=== PATIENT | female | born 1965 | race Caucasian/White ===

== ENCOUNTER 2020-03-26 10:11 | Emergency (ER) | payer OTHER ==
[~2020-03-26] VITALS: Ht 160 cm; Wt 92.5 kg
[2020-03-26 10:25] VITALS: BP 128/95
[2020-03-26 10:42] VITALS: BP 128/95
--- NOTE | 2020-03-26 10:56 | DIREP ---
PROCEDURE:XRAY WRIST MIN 3VW-LT COMPARISON:None. INDICATIONS:fall, wrist pain FINDINGS: BONES:Impacted fracture of the distal radial metaphysis with mild dorsal angulation. There is questionable extension to the distal articular surface. JOINTS:Normal. SOFT TISSUES:Normal. OTHER:No additional findings. CONCLUSION:Impacted fracture of the distal radial metaphysis with questionable extension to the distal articular surface. Dictated by: Nilton Huerta M.D. on 03/26/2020 at 11:06 AM
[2020-03-26] MEDS ORDERED: TORADOL ONE (11:08)
[2020-03-26] MEDS: TORADOL IM STA (11:18)
--- NOTE | 2020-03-26 11:21 | ER.PDOC ---
General Chief Complaint: Extremities Stated Complaint: FALL/HURT LEFT WRIST Time seen by MD: 10:50 Source: patient Exam Limitations: no limitations History of Present Illness Initial Comments Pt states she was at her sister's this morning and tripped fell landing on her left hand and left knee. Pt states now her left shoulder hurts and left wrist and left knee are very painful Occurred: just prior to arrival Where: home Severity: moderate Modifying Factors: pain on movement Allergies: Coded Allergies: acetaminophen (Verified Allergy, Unknown, NAUSEA, 03/26/20) codeine (Verified Allergy, Unknown, NAUSEA, 03/26/20) Past Medical History Medical History: GERD, high cholesterol, hypertension Surgical History: hysterectomy, shoulder, tonsillectomy, other Family History Significant Family History: other Social History Alcohol Use: none Drug Use: none Review of Systems Constitutional: no symptoms reported EENTM: no symptoms reported Respiratory: no symptoms reported Cardiovascular: no symptoms reported Gastrointestinal: no symptoms reported Genitourinary: no symptoms reported Musculoskeletal: see HPI Skin: no symptoms reported Psychiatric/Neurological: no symptoms reported All Other Systems: Reviewed and Negative Physical Exam General Appearance: Alert, Anxious, Mild Distress Hand: nml inspection, non-tender Wrist: tenderness, tenderness snuff box, swelling, limited ROM due to pain Forearm/Elbow: nml inspection, non-tender, nml ROM Arm/Shoulder: limited ROM by pain Neuro/Vasc/Tendon: sensation nml, motor nml, no vascular compromise, tendon function nml Skin: warm/dry Head/ENT: nml inspection, pharynx nml Neck/Back: nml inspection, non-tender Respiratory: chest non-tender, breath sounds nml CVS: heart sounds normal Abdomen: non-tender, no organomegaly Comments + deformity lateral wrist area radial side, skin intact, radial pulse +3 , left knee and left shoulder full painful ROM Splinting Splinting : Location: left arm Pre-Made Type: Hand-Made Type: orthoglass Splint: sugar-tong Pre-Proc Neuro Vasc Exam: normal Post-Proc Neuro Vasc Exam: normal Progress PT tolerated it well Results/Orders Results/Orders Orders - CRISS ANGLIN NP Ketorolac Tromethamine (Toradol) (03/26/20 11:07) Xr Shoulder Lt 2v (03/26/20 11:07) Xr Knee Lt 2v (03/26/20 11:07) Vital Signs Date Time Temp Pulse Resp B/P (MAP) Pulse Ox O2 Delivery O2 Flow Rate FiO2 03/26/20 10:42 97.9 102 16 128/95 (106) 96 03/26/20 10:42 97.9 102 16 128/95 (106) 96 03/26/20 10:25 97.9 102 16 03/26/20 10:25 97.9 102 16 96 Administered Medications Medications (Trade) Dose Ordered Sig/Shaista Route PRN Reason Start Time Stop Time Status Last Admin Dose Admin Ketorolac Tromethamine (Toradol) 60 mg OT STAT IM 03/26/20 11:07 03/26/20 11:09 DC 03/26/20 11:18 60 MG Progress Progress ICE to the left wrist and left knee. I discussed signs and symptoms and fracture and treatment and discharge with Dr Bonilla. MT. Left shoulder immobilizer place on the pt, she tolerated it well MT Departure Time of Disposition: 12:15 Disposition: 01 HOME, SELF-CARE Impression: Primary Impression: Wrist fracture, left Additional Impressions: Distal radius fracture, left Contusion of knee, left Shoulder pain, left Condition: Stable Patient Instructions: Knee Pain, [id number], RICE - Routine Care for Injuries, [id number], Shoulder Pain, [id number], Wrist Fracture, [id number] Referrals: PCP,UNKNOWN (PCP) PRIMARY CARE PROVIDER Additional Instructions: Return if symptoms worsen. Follow up with [facility]opedic at home in [place], [place] tomorrow or Dr. Wu in [place], [place] [phone] for follow up. Tramadol 50 mg one by mouth every 8 hours as needed for pain x 5 days 15 # Duration or Time Spent with Pa: 18 minutes Return to Work/School Can a patient return to work?: No Can a patient return to school: No Problem Qualifiers Primary Impression: Wrist fracture, left Encounter type: initial encounter Fracture type: closed Qualified Codes: S62.102A - Fracture of unspecified carpal bone, left wrist, initial encounter for closed fracture Additional Impressions: Distal radius fracture, left Encounter type: initial encounter Fracture type: closed Fracture morphology: other fracture Qualified Codes: S52.592A - Other fractures of lower end of left radius, initial encounter for closed fracture Contusion of knee, left Encounter type: initial encounter Qualified Codes: S80.02XA - Contusion of left knee, initial encounter Shoulder pain, left Chronicity: acute Qualified Codes: M25.512 - Pain in left shoulder CRISS ANGLIN NP March 26, 2020 11:21
--- NOTE | 2020-03-26 11:43 | DIREP ---
PROCEDURE:XRAY SHOULDER MIN 2 VWS-LT COMPARISON:None. INDICATIONS:fall FINDINGS: BONES:Normal. JOINTS:Moderate acromioclavicular arthrosis, with mild glenohumeral degenerative change. SOFT TISSUES:Normal. OTHER:Normal. CONCLUSION:Degenerative changes without acute abnormality noted. Dictated by: Mecca Solo M.D. on 03/26/2020 at 11:41 AM
--- NOTE | 2020-03-26 11:44 | DIREP ---
PROCEDURE:XRAY KNEE 2 VWS-LT COMPARISON:None. INDICATIONS:fall FINDINGS: BONES:No fracture. Mild patellar and tibial tubercle enthesophyte formation. JOINTS:Mild patellofemoral degenerative change. No joint effusion. SOFT TISSUES:Normal. OTHER:No additional findings. CONCLUSION:No acute abnormality. Dictated by: Mecca Solo M.D. on 03/26/2020 at 11:42 AM
== END 2020-03-26 12:20 | disposition home or self-care (01) ==
LOC: ER 10:11
DX: S52.502A Unspecified fracture of the lower end of left radius, initial encounter for closed fracture (principal); S80.02XA Contusion of left knee, initial encounter; M25.512 Pain in left shoulder; E78.00 Pure hypercholesterolemia, unspecified; K21.9 Gastro-esophageal reflux disease without esophagitis; I10 Essential (primary) hypertension; Z79.1 Long term (current) use of non-steroidal anti-inflammatories (NSAID); Z88.5 Allergy status to narcotic agent; Z90.710 Acquired absence of both cervix and uterus; W01.0XXA Fall on same level from slipping, tripping and stumbling without subsequent striking against object, initial encounter; Y93.89 Activity, other specified; Y92.89 Other specified places as the place of occurrence of the external cause; Y99.8 Other external cause status
CPT/HCPCS: 29105; 73030; 73110; 73560; 96372; 99284; J1885